=== PATIENT | male | born 1980 | race Caucasian/White ===

== ENCOUNTER 2017-11-29 09:59 | Emergency (ER) | payer MEDICAID ==
[~2017-11-29] VITALS: Ht 165.1 cm; Wt 69.4 kg
[2017-11-29 10:19] VITALS: BP 114/82; Ht 165.1 cm; Wt 69.4 kg
== END 2017-11-29 13:08 | disposition home or self-care (01) ==
LOC: ED 09:59
DX: S01.81XA Laceration without foreign body of other part of head, initial encounter (principal); X58.XXXA Exposure to other specified factors, initial encounter; Y93.89 Activity, other specified; Y92.89 Other specified places as the place of occurrence of the external cause; Y99.8 Other external cause status
CPT/HCPCS: 90715